=== PATIENT | female | born 1930 | race African-American/Black ===

== ENCOUNTER 2020-02-05 13:40 | Inpatient (IN) | payer BC, MEDICARE ==
[~2020-02-05] VITALS: Ht 154.9 cm; Wt 76.2 kg
[2020-02-05 16:53] LABS: MEAN CORPUSCULAR HEMOGLOBIN 31.3 pg (28.0-32.0); MEAN CORPUSCULAR VOLUME 102.3 fL (81.0-99.0); MEAN PLATELET VOLUME 10.7 fl (7.4-10.4); PLATELET 105 x1000/uL (130-400); RED BLOOD CELL COUNT 1.66 mill/uL (4.2-5.4); RED CELL DISTRIBUTION WIDTH 20.8 % (11.6-14.6)
[2020-02-05 16:58] LABS: CHLORIDE 115 mEq/L (98-107)
[2020-02-05 17:05] LABS: HEMATOCRIT. 16.9 % (36.0-48.0); HEMOGLOBIN. 5.2 g/dL (12.0-16.0)
[2020-02-05 18:32] LABS: CLARITY URINE CLOUDY (CLEAR); COLOR URINE YELLOW (YELLOW); KETONES URINE NEGATIVE (NEGATIVE); LEUKOCYTE ESTERASE URINE 3+ (NEGATIVE); NITRITE URINE NEGATIVE (NEGATIVE); OCCULT BLOOD URINE TRACE (NEGATIVE); PH URINE 5.5 (4.5-8.0); PROTEIN URINE NEGATIVE (NEGATIVE); SPECIFIC GRAVITY URINE 1.014 (1.005-1.030); UROBILINOGEN URINE 0.2 E.U./dL (0.2-1.0)
[2020-02-05 18:46] LABS: BG BASE EXCESS -13.3 mmol/L (-2.0-2.0); BG CARBOXYHEMOGLOBIN 1.4 % (0.5-1.5); BG DEOXYHEMOGLOBIN 45.1 % (0.0-5.0); BG FRACTION INSPIRED OXYGEN 36; BG HCO3 ACT 12.3 mmol/L (22.0-26.0); BG METHEMOGLOBIN 0.5 % (0.0-1.5); BG PCO2 26.9 mmHg (35.0-45.0); BG PH 7.278 (7.350-7.450); BG PO2 36.4 mmHg (75.0-100.0); BG SAMPLE SITE OTHER; BG TOTAL HEMOGLOBIN 5.4 g/dL (12.0-18.0); BG VENT MODE NASAL CANNULA
[2020-02-05] MEDS ORDERED: INSULIN REGULAR (HUMULIN R) 300UNITS/3ML IV ONE (19:00)
[2020-02-05] MEDS ORDERED: SODIUM BICARBONATE 8.4% 1 MEQ/ML 50ML SYR IV ONE (19:00)
[2020-02-05] MEDS ORDERED: CALCIUM CHLORIDE 1GM/10ML SYR IV ONE (19:00)
[2020-02-05] MEDS ORDERED: DEXTROSE 50% WATER 50ML SYRINGE IV ONE (19:00)
[2020-02-05] MEDS ORDERED: CEFTRIAXONE 1 G PREMIX 50 ML IV ONE (19:30)
[2020-02-05 20:43] LABS: TOTAL IRON BINDING CAPACITY 321 ug/dL (250-450)
[2020-02-05] MEDS ORDERED: TRAMADOL 50MG TABLET ONE (20:43)
[2020-02-05] MEDS ORDERED: TRAMADOL 50MG TABLET PO ONE (20:45)
[2020-02-05 21:26] LABS: NUCLEATED RED BLOOD CELLS 1 /100 WBC
[2020-02-05 21:29] LABS: PLATELET ESTIMATE DECREASED
[2020-02-06] VITALS (12 sets, daily range): BP systolic 122–135; BP diastolic 44–75
[2020-02-06] MEDS ORDERED: ALLO100T MT (02:34)
[2020-02-06] MEDS ORDERED: GLIM2TAB30 MT (02:34)
[2020-02-06] MEDS ORDERED: OMEP40CA12 MT (02:34)
[2020-02-06] MEDS ORDERED: ATOR20TA65 MT (02:34)
[2020-02-06] MEDS ORDERED: WARF2.5T83 MT (02:34)
[2020-02-06] MEDS ORDERED: FERR-71 MT (02:34)
[2020-02-06] MEDS ORDERED: CARV25TA47 MT (02:34)
[2020-02-06] MEDS ORDERED: FURO40TA5 MT (02:34)
[2020-02-06] MEDS ORDERED: METO2.5T14 MT (02:34)
[2020-02-06] MEDS ORDERED: LOSA50TA41 MT (02:34)
[2020-02-06] MEDS ORDERED: CLONIDINE 0.1MG TABLET PO PRN (03:45)
[2020-02-06] MEDS ORDERED: ACETAMINOPHEN 325MG TABLET PO PRN (03:45)
[2020-02-06] MEDS ORDERED: ONDANSETRON HCL 4MG/2ML INJ IV PRN (03:45)
[2020-02-06 04:26] LABS: MEAN CORPUSCULAR HEMOGLOBIN 30.6 pg (28.0-32.0); MEAN CORPUSCULAR VOLUME 95.4 fL (81.0-99.0); MEAN PLATELET VOLUME 9.7 fl (7.4-10.4); PLATELET 88 x1000/uL (130-400); RED BLOOD CELL COUNT 2.01 mill/uL (4.2-5.4); RED CELL DISTRIBUTION WIDTH 19.1 % (11.6-14.6)
[2020-02-06 04:27] LABS: PHOSPHORUS 3.4 mg/dL (2.5-4.9)
[2020-02-06 04:41] LABS: HEMOGLOBIN. 6.1 g/dL (12.0-16.0)
[2020-02-06 04:42] LABS: HEMATOCRIT. 19.1 % (36.0-48.0)
[2020-02-06 05:22] LABS: NUCLEATED RED BLOOD CELLS 1 /100 WBC; PLATELET ESTIMATE DECREASED
[2020-02-06] MEDS ORDERED: DEXTROSE 50% WATER 50ML SYRINGE IV PRN (13:00)
[2020-02-06 13:17] LABS: TOTAL IRON BINDING CAPACITY 299 ug/dL (250-450)
[2020-02-06] MEDS: FERROUS SULFATE 325MG TABLET PO SCH (15:02)
[2020-02-06] MEDS: ALLOPURINOL 100 MG TABLET PO SCH (15:02)
[2020-02-06] MEDS: LOSARTAN POTASSIUM 50 MG TABLET PO SCH (15:02)
[2020-02-06] MEDS: CARVEDILOL 12.5MG TABLET PO SCH ×2 (15:03→21:00)
[2020-02-06] MEDS: FUROSEMIDE 40MG/4ML VIAL IVP SCH (15:19)
[2020-02-06] MEDS ORDERED: DOCUSATE SODIUM 250MG CAPSULE PO PRN (15:45)
[2020-02-06] MEDS: BLOOD SUGAR DIAGNOSTIC STRIP TEST SCH ×2 (17:16→21:00)
[2020-02-06] MEDS: INSULIN LISPRO 100 UNITS/ML SUBCUT SCH ×2 (17:19→22:33)
[2020-02-06] MEDS ORDERED: ATORVASTATIN CALCIUM 20MG TABLET PO SCH (21:00)
[2020-02-07] VITALS (14 sets, daily range): BP systolic 110–145; BP diastolic 15–60
[2020-02-07 06:30] LABS: FERRITIN 39 ng/mL (10-291)
[2020-02-07 06:41] LABS: HEPATITIS B SURFACE ANTIGEN NEGATIVE
[2020-02-07 06:44] LABS: HEMATOCRIT. 21.1 % (36.0-48.0); MEAN CORPUSCULAR HEMOGLOBIN 31.2 pg (28.0-32.0); MEAN CORPUSCULAR VOLUME 94.1 fL (81.0-99.0); PLATELET 77 x1000/uL (130-400); RED BLOOD CELL COUNT 2.24 mill/uL (4.2-5.4); RED CELL DISTRIBUTION WIDTH 17.9 % (11.6-14.6)
[2020-02-07] MEDS: INSULIN LISPRO 100 UNITS/ML SUBCUT SCH ×3 (07:44→16:56)
[2020-02-07] MEDS: BLOOD SUGAR DIAGNOSTIC STRIP TEST SCH ×3 (07:44→16:55)
[2020-02-07] MEDS: FUROSEMIDE 40MG/4ML VIAL IVP SCH (09:24)
[2020-02-07] MEDS: FERROUS SULFATE 325MG TABLET PO SCH (09:25)
[2020-02-07] MEDS: CARVEDILOL 12.5MG TABLET PO SCH (09:25)
[2020-02-07] MEDS: ALLOPURINOL 100 MG TABLET PO SCH (09:25)
[2020-02-07] MEDS: LOSARTAN POTASSIUM 50 MG TABLET PO SCH (09:25)
[2020-02-07 11:56] LABS: PROTHROMBIN TIME 59.6 sec (9.6-11.0)
[2020-02-07 11:59] LABS: NUCLEATED RED BLOOD CELLS 2 /100 WBC
[2020-02-07 12:01] LABS: PLATELET ESTIMATE DECREASED
[2020-02-07 12:11] LABS: INR 5.8
== END 2020-02-07 21:25 | disposition short-term general hospital (02) | DRG 291 ==
LOC: ER 13:40 → 6WST 19:52 → EDBEDREQ 19:56 → EDBEDREQTM 19:56 → ENRESERV 22:53
PROVIDERS: ADMIT Internal Medicine; ATTEND Internal Medicine
PROC: 30233N1 Transfusion of Nonautologous Red Blood Cells into Peripheral Vein, Percutaneous Approach (ICD-10-PCS; principal; 2020-02-05)
DX: I13.0 Hypertensive heart and chronic kidney disease with heart failure and stage 1 through stage 4 chronic kidney disease, or unspecified chronic kidney disease (principal); I50.23 Acute on chronic systolic (congestive) heart failure; N17.9 Acute kidney failure, unspecified; N39.0 Urinary tract infection, site not specified; J91.8 Pleural effusion in other conditions classified elsewhere; I42.9 Cardiomyopathy, unspecified; N18.9 Chronic kidney disease, unspecified; M19.90 Unspecified osteoarthritis, unspecified site; D69.6 Thrombocytopenia, unspecified; E87.5 Hyperkalemia; J44.9 Chronic obstructive pulmonary disease, unspecified; Z86.73 Personal history of transient ischemic attack (TIA), and cerebral infarction without residual deficits; Z95.2 Presence of prosthetic heart valve; Z95.810 Presence of automatic (implantable) cardiac defibrillator; D63.1 Anemia in chronic kidney disease
CPT/HCPCS: 36415; 36600; 71045; 76770; 80048; 80053; 80076; 81003; 82375; 82728; 82805; 82962; 83036; 83540; 83550; 83605; 83735; 83880; 84100; 84145; 84484; 85025; 85044; 86850; 86900; 86920; 87340; 87804; 93005; 93306; 93970; 96365; 96375; 99291; J0696; J1815; J1940; J3490; P9016

== ENCOUNTER 2021-08-11 22:06 | Inpatient (IN) | payer MEDICARE ==
[~2021-08-11] VITALS: Ht 157.5 cm; Wt 72.6 kg
[~2021-08-11 22:06] MED LIST: ALLO100T MT; ATOR20TA65 MT; CARV25TA47 MT; FERR-71 MT; FURO40TA5 MT; GLIM2TAB30 MT; LOSA50TA41 MT; METO2.5T2 MT; OMEP40CA20 MT; WARF2.5T83 MT
[2021-08-11] MEDS ORDERED: MORPHINE SULFATE 4 MG/ML CPJ (NOT FOR IM USE) IV ONE (22:45)
[2021-08-12 00:57] LABS: BASOPHILS % 0.8 % (0.0-2.0); EOSINOPHILS % 3.3 % (0.0-5.0); HEMATOCRIT. 35.2 % (36.0-48.0); HEMOGLOBIN. 10.7 g/dL (12.0-16.0); MEAN PLATELET VOLUME 10.6 fl (7.4-10.4); MONOCYTES % 11.2 % (2.0-8.0); NEUTROPHILS % 67.7 % (40.0-76.0); PLATELET 82 x1000/uL (130-400); RED BLOOD CELL COUNT 3.45 mill/uL (4.2-5.4); RED CELL DISTRIBUTION WIDTH 18.5 % (11.6-14.6)
[2021-08-12 01:01] LABS: CHLORIDE 111 mEq/L (98-107)
[2021-08-12 01:06] LABS: INR 1.3; PARTIAL THROMBOPLASTIN TIME 33.4 sec (23.4-31.0); PROTHROMBIN TIME 13.6 sec (9.6-11.0)
[2021-08-12 02:07] LABS: CLARITY URINE CLOUDY (CLEAR); COLOR URINE DK YELLOW (YELLOW); KETONES URINE TRACE (NEGATIVE); LEUKOCYTE ESTERASE URINE 2+ (NEGATIVE); NITRITE URINE NEGATIVE (NEGATIVE); OCCULT BLOOD URINE 1+ (NEGATIVE); PROTEIN URINE NEGATIVE (NEGATIVE)
[2021-08-12] MEDS ORDERED: MORPHINE SULFATE 4 MG/ML CPJ (NOT FOR IM USE) IV NR (02:15)
[2021-08-12] MEDS ORDERED: DEXTROSE 50% WATER 50ML SYRINGE IV PRN (05:45)
[2021-08-12 06:15] VITALS: BP 124/54
[2021-08-12] MEDS ORDERED: NALOXONE HCL 0.4MG/ML VIAL IV PRN (06:30)
[2021-08-12] MEDS ORDERED: BLOOD SUGAR DIAGNOSTIC STRIP TEST SCH (07:20)
[2021-08-12] MEDS ORDERED: INSULIN LISPRO 100 UNITS/ML SUBCUT SCH (07:50)
[2021-08-12 08:00] VITALS: BP 118/40
[2021-08-12] MEDS ORDERED: AMLODIPINE 10MG TABLET PO SCH (09:00)
[2021-08-12] MEDS: HYDROCODONE/ACETAMINOPHEN 5/325MG TABLET PO PRN ×3 (10:27→21:12)
[2021-08-12] MEDS: FOLIC ACID/VITAMIN B COMP W-C TABLET PO SCH (10:27)
[2021-08-12 12:00] VITALS: BP 116/60
[2021-08-12 16:00] VITALS: BP 119/50
[2021-08-12] MEDS: CEFTRIAXONE 1,000 MG in DEXTROSE 5% WATER 50 ML IV SCH (17:42)
[2021-08-12 18:01] LABS: HEPATITIS B SURFACE ANTIGEN NEGATIVE
[2021-08-12 19:12] VITALS: BP 160/60
[2021-08-12 20:00] VITALS: BP 125/63
[2021-08-12] MEDS: AMLODIPINE 5MG TABLET PO SCH (21:09)
[2021-08-13] VITALS: BP 125/56
[2021-08-13 04:00] VITALS: BP 124/70
[2021-08-13] MEDS: HYDROCODONE/ACETAMINOPHEN 5/325MG TABLET PO PRN ×2 (05:48→21:24)
[2021-08-13 08:00] VITALS: BP 131/48
[2021-08-13 08:01] LABS: BASOPHILS % 0.4 % (0.0-2.0); EOSINOPHILS % 2.4 % (0.0-5.0); HEMATOCRIT. 41.4 % (36.0-48.0); HEMOGLOBIN. 12.2 g/dL (12.0-16.0); LYMPHOCYTES % 14.8 % (20.0-50.0); MEAN CORPUSCULAR HEMOGLOBIN 30.5 pg (28.0-32.0); MEAN CORPUSCULAR VOLUME 103.2 fL (81.0-99.0); MEAN PLATELET VOLUME 10.8 fl (7.4-10.4); MONOCYTES % 14.1 % (2.0-8.0); NEUTROPHILS % 68.3 % (40.0-76.0); PLATELET 73 x1000/uL (130-400); RED BLOOD CELL COUNT 4.01 mill/uL (4.2-5.4); RED CELL DISTRIBUTION WIDTH 19.1 % (11.6-14.6)
[2021-08-13] MEDS: AMLODIPINE 5MG TABLET PO SCH ×2 (09:36→20:23)
[2021-08-13] MEDS: FOLIC ACID/VITAMIN B COMP W-C TABLET PO SCH (09:36)
[2021-08-13 12:00] VITALS: BP 127/48
[2021-08-13] MEDS: CEFTRIAXONE 1,000 MG in DEXTROSE 5% WATER 50 ML IV SCH (13:20)
[2021-08-13 20:00] VITALS: BP 103/70
[2021-08-13 23:42] VITALS: BP 114/72
[2021-08-14 04:00] VITALS: BP 124/48
[2021-08-14 07:11] LABS: HEMATOCRIT. 40.6 % (36.0-48.0); HEMOGLOBIN. 12.2 g/dL (12.0-16.0); MEAN CORPUSCULAR VOLUME 100.1 fL (81.0-99.0); MEAN PLATELET VOLUME 10.4 fl (7.4-10.4); PLATELET 63 x1000/uL (130-400); RED BLOOD CELL COUNT 4.06 mill/uL (4.2-5.4); RED CELL DISTRIBUTION WIDTH 18.3 % (11.6-14.6)
[2021-08-14 08:00] VITALS: BP 123/21
[2021-08-14] MEDS: FOLIC ACID/VITAMIN B COMP W-C TABLET PO SCH (08:25)
[2021-08-14] MEDS: AMLODIPINE 5MG TABLET PO SCH ×2 (08:26→21:00)
[2021-08-14 12:00] VITALS: BP 136/50
[2021-08-14] MEDS ORDERED: DEXTROSE 50% WATER 50ML SYRINGE IV PRN (12:45)
[2021-08-14] MEDS ORDERED: MORPHINE SULFATE 2 MG/ML CPJ (NOT FOR IM USE) IV PRN (12:45)
[2021-08-14] MEDS: INSULIN LISPRO 100 UNITS/ML SUBCUT SCH ×3 (12:48→21:00)
[2021-08-14] MEDS: BLOOD SUGAR DIAGNOSTIC STRIP TEST SCH ×4 (13:20→22:04)
[2021-08-14] MEDS: CEFTRIAXONE 1,000 MG in DEXTROSE 5% WATER 50 ML IV SCH (13:36)
[2021-08-14 16:00] VITALS: BP 163/50
[2021-08-14] MEDS ORDERED: VANCOMYCIN HCL 1 GM/VIAL ONE (16:22)
[2021-08-14] MEDS ORDERED: BACITRACIN 15GM TUBE TOP ONE (16:22)
[2021-08-14] MEDS ORDERED: BUPIVACAINE HCL/PF 0.25% (2.5MG/ML) 10ML ONE (16:22)
[2021-08-14] MEDS ORDERED: GENTAMICIN SULF 40MG/ML 2ML VIAL ONE ×2 (16:22→17:16)
[2021-08-14] MEDS ORDERED: POLYMYXIN B SULFATE 500000 UNITS/VIAL ONE (17:15)
[2021-08-14] MEDS ORDERED: LIDOCAINE HCL/EPINEPHRINE 1%-EPI 1:100,000 20 ML VIAL ONE (17:15)
[2021-08-14] MEDS ORDERED: HYDROCODONE/ACETAMINOPHEN 5/325MG TABLET PO PRN ×2 (17:30)
[2021-08-14] MEDS ORDERED: ONDANSETRON HCL 4MG/2ML INJ IV PRN ×2 (17:30→19:30)
[2021-08-14] MEDS ORDERED: CEFAZOLIN 1000MG PREMIX 50 ML IV SCH (17:30)
[2021-08-14] MEDS ORDERED: HYDROMORPHONE HCL/PF 2MG/ML CPJ IV PRN (17:54)
[2021-08-14] MEDS ORDERED: CEFAZOLIN SODIUM 1000MG/VIAL ONE (17:55)
[2021-08-14] MEDS ORDERED: DEXAMETHASONE 4MG/ML 1ML VIAL ONE (17:55)
[2021-08-14] MEDS ORDERED: ALBUMIN HUMAN 25GM/100ML (25%) IV NR (18:00)
[2021-08-14] MEDS ORDERED: ALBUMIN HUMAN 12.5GM/50ML (25%) IV ONE (18:02)
[2021-08-14] MEDS ORDERED: ALBUMIN HUMAN 25GM/100ML (25%) IV ONE (18:04)
[2021-08-14 18:08] LABS: PLATELET ESTIMATE DECREASED
[2021-08-14] MEDS ORDERED: LABETALOL 5MG/ML SYR 20 MG/4 ML SYRINGE IV PRN (19:30)
[2021-08-14] MEDS ORDERED: MEPERIDINE HCL/PF 25MG/ML CPJ IV PRN (19:30)
[2021-08-14] MEDS ORDERED: HEPARIN SODIUM 1,000 UNIT/1ML VIAL IV NR (19:45)
[2021-08-15 00:02] VITALS: BP 122/57
[2021-08-15 04:00] VITALS: BP 119/60
[2021-08-15] MEDS: INSULIN LISPRO 100 UNITS/ML SUBCUT SCH ×4 (07:50→20:42)
[2021-08-15 08:00] VITALS: BP 114/33
[2021-08-15] MEDS: AMLODIPINE 5MG TABLET PO SCH ×2 (08:24→20:37)
[2021-08-15] MEDS: CEFAZOLIN 1000MG PREMIX 50 ML IV SCH (08:43)
[2021-08-15] MEDS: FOLIC ACID/VITAMIN B COMP W-C TABLET PO SCH (08:43)
[2021-08-15] MEDS ORDERED: ENOXAPARIN 40MG/0.4ML SYR SUBCUT SCH (09:00)
[2021-08-15 12:00] VITALS: BP 109/50
[2021-08-15] MEDS: BLOOD SUGAR DIAGNOSTIC STRIP TEST SCH ×3 (12:20→20:37)
[2021-08-15] MEDS: CEFTRIAXONE 1,000 MG in DEXTROSE 5% WATER 50 ML IV SCH (13:00)
[2021-08-15 16:00] VITALS: BP 92/47
[2021-08-15 17:39] LABS: HEMATOCRIT. 29.5 % (36.0-48.0); MEAN CORPUSCULAR HEMOGLOBIN 30.9 pg (28.0-32.0); MEAN CORPUSCULAR VOLUME 100.9 fL (81.0-99.0); MEAN PLATELET VOLUME 11.1 fl (7.4-10.4); PLATELET 61 x1000/uL (130-400); RED BLOOD CELL COUNT 2.92 mill/uL (4.2-5.4); RED CELL DISTRIBUTION WIDTH 18.3 % (11.6-14.6)
[2021-08-15 18:17] LABS: PLATELET ESTIMATE DECREASED
[2021-08-15 20:00] VITALS: BP 117/61
[2021-08-16] VITALS: BP 111/67
[2021-08-16 04:00] VITALS: BP 153/82
[2021-08-16] MEDS ORDERED: DEXTROSE 50% WATER 50ML SYRINGE IV SCH (05:30)
[2021-08-16] MEDS ORDERED: INSULIN REGULAR (HUMULIN R) 300UNITS/3ML VIAL IV SCH (06:00)
[2021-08-16] MEDS: CEFAZOLIN 1000MG PREMIX 50 ML IV SCH (06:52)
[2021-08-16] MEDS ORDERED: SODIUM BICARBONATE 8.4% 1 MEQ/ML 50ML SYR IV SCH (07:00)
[2021-08-16] MEDS ORDERED: CALCIUM CHLORIDE 1,000 MG in DEXT 5% WATER 90 ML IV SCH (07:00)
[2021-08-16] MEDS: BLOOD SUGAR DIAGNOSTIC STRIP TEST SCH ×4 (07:20→21:00)
[2021-08-16 08:00] VITALS: BP 99/46
[2021-08-16 08:59] LABS: HEMATOCRIT. 23.1 % (36.0-48.0); HEMOGLOBIN. 7.4 g/dL (12.0-16.0); MEAN CORPUSCULAR HEMOGLOBIN 31.5 pg (28.0-32.0); MEAN CORPUSCULAR VOLUME 97.6 fL (81.0-99.0); MEAN PLATELET VOLUME 10.2 fl (7.4-10.4); PLATELET 58 x1000/uL (130-400); RED BLOOD CELL COUNT 2.36 mill/uL (4.2-5.4); RED CELL DISTRIBUTION WIDTH 18.1 % (11.6-14.6)
[2021-08-16] MEDS: AMLODIPINE 5MG TABLET PO SCH ×2 (09:00→22:25)
[2021-08-16] MEDS: FOLIC ACID/VITAMIN B COMP W-C TABLET PO SCH (09:28)
[2021-08-16] MEDS ORDERED: HEPARIN SODIUM 1,000 UNIT/1ML VIAL IV NR (09:30)
[2021-08-16] MEDS: INSULIN LISPRO 100 UNITS/ML SUBCUT SCH ×4 (09:33→22:25)
[2021-08-16 10:16] LABS: PLATELET ESTIMATE MARKEDLY DECREASED
[2021-08-16] MEDS: CEFTRIAXONE 1,000 MG in DEXTROSE 5% WATER 50 ML IV SCH (13:54)
[2021-08-16 16:00] VITALS: BP 122/69
[2021-08-16 20:00] VITALS: BP 142/59
[2021-08-17] VITALS (7 sets, daily range): BP systolic 117–142; BP diastolic 46–67
[2021-08-17] MEDS: INSULIN LISPRO 100 UNITS/ML SUBCUT SCH ×4 (06:42→21:39)
[2021-08-17] MEDS: BLOOD SUGAR DIAGNOSTIC STRIP TEST SCH ×4 (06:42→21:07)
[2021-08-17] MEDS: FOLIC ACID/VITAMIN B COMP W-C TABLET PO SCH (09:15)
[2021-08-17] MEDS: AMLODIPINE 5MG TABLET PO SCH ×2 (09:15→20:32)
[2021-08-17] MEDS: LACTULOSE 20G/30ML UDC PO SCH ×2 (17:24→21:00)
[2021-08-17 21:25] LABS: HEMATOCRIT. 26.1 % (36.0-48.0); MEAN CORPUSCULAR HEMOGLOBIN 30.8 pg (28.0-32.0); MEAN CORPUSCULAR VOLUME 100.3 fL (81.0-99.0); MEAN PLATELET VOLUME 10.4 fl (7.4-10.4); PLATELET 64 x1000/uL (130-400); RED CELL DISTRIBUTION WIDTH 18.3 % (11.6-14.6)
[2021-08-17 22:46] LABS: PLATELET ESTIMATE DECREASED
[2021-08-18] VITALS: BP 102/64
[2021-08-18 04:00] VITALS: BP 145/62
[2021-08-18] MEDS: INSULIN LISPRO 100 UNITS/ML SUBCUT SCH ×4 (07:50→21:00)
[2021-08-18 08:00] VITALS: BP 135/55
[2021-08-18] MEDS: BLOOD SUGAR DIAGNOSTIC STRIP TEST SCH ×4 (08:00→21:00)
[2021-08-18] MEDS ORDERED: LIDOCAINE HCL 1% 30ML VIAL (10MG/ML) ONE (08:05)
[2021-08-18] MEDS: LACTULOSE 20G/30ML UDC PO SCH (09:00)
[2021-08-18] MEDS: CEFAZOLIN 1000MG PREMIX 50 ML IV SCH (10:10)
[2021-08-18] MEDS: FOLIC ACID/VITAMIN B COMP W-C TABLET PO SCH (10:11)
[2021-08-18] MEDS: AMLODIPINE 5MG TABLET PO SCH ×2 (10:11→21:00)
[2021-08-18 12:00] VITALS: BP 130/41
[2021-08-18 16:00] VITALS: BP 143/31
[2021-08-18 20:00] VITALS: BP 150/51
[2021-08-19] VITALS: BP 152/52
[2021-08-19 04:00] VITALS: BP 100/82
[2021-08-19] MEDS: CEFAZOLIN 1000MG PREMIX 50 ML IV SCH (06:36)
[2021-08-19] MEDS: BLOOD SUGAR DIAGNOSTIC STRIP TEST SCH ×4 (06:36→21:27)
[2021-08-19] MEDS: INSULIN LISPRO 100 UNITS/ML SUBCUT SCH ×4 (07:50→21:26)
[2021-08-19 08:00] VITALS: BP 135/66
[2021-08-19] MEDS: AMLODIPINE 5MG TABLET PO SCH ×2 (09:00→21:17)
[2021-08-19] MEDS: FOLIC ACID/VITAMIN B COMP W-C TABLET PO SCH (09:12)
[2021-08-19 12:00] VITALS: BP 118/46
[2021-08-19 17:32] LABS: BASOPHILS % 0.2 % (0.0-2.0); HEMATOCRIT. 25.2 % (36.0-48.0); HEMOGLOBIN. 7.5 g/dL (12.0-16.0); LYMPHOCYTES % 17.2 % (20.0-50.0); MEAN CORPUSCULAR HEMOGLOBIN 30.1 pg (28.0-32.0); MEAN CORPUSCULAR VOLUME 101.1 fL (81.0-99.0); MEAN PLATELET VOLUME 10.4 fl (7.4-10.4); MONOCYTES % 9.9 % (2.0-8.0); NEUTROPHILS % 69.7 % (40.0-76.0); PLATELET 63 x1000/uL (130-400); RED CELL DISTRIBUTION WIDTH 18.2 % (11.6-14.6)
[2021-08-19 20:00] VITALS: BP 148/53
[2021-08-19 20:18] VITALS: BP 148/53
== END 2021-08-19 19:20 | DRG 521 ==
LOC: ER 22:06 → 6EST 08-12 00:52 → ENRESERV 08-12 03:51
PROVIDERS: ADMIT Internal Medicine; ATTEND Internal Medicine
PROC: 5A1D70Z Performance of Urinary Filtration, Intermittent, Less than 6 Hours Per Day (ICD-10-PCS; 2021-08-13)
PROC: 0SRR0JZ Replacement of Right Hip Joint, Femoral Surface with Synthetic Substitute, Open Approach (ICD-10-PCS; principal; 2021-08-14)
PROC: 5A1D70Z Performance of Urinary Filtration, Intermittent, Less than 6 Hours Per Day (ICD-10-PCS; 2021-08-15)
PROC: 5A1D70Z Performance of Urinary Filtration, Intermittent, Less than 6 Hours Per Day (ICD-10-PCS; 2021-08-16)
PROC: 30233N1 Transfusion of Nonautologous Red Blood Cells into Peripheral Vein, Percutaneous Approach (ICD-10-PCS; 2021-08-17)
PROC: 02HV33Z Insertion of Infusion Device into Superior Vena Cava, Percutaneous Approach (ICD-10-PCS; 2021-08-18)
PROC: B548ZZA Ultrasonography of Superior Vena Cava, Guidance (ICD-10-PCS; 2021-08-18)
DX: S72.031A Displaced midcervical fracture of right femur, initial encounter for closed fracture (principal); N18.6 End stage renal disease; E43 Unspecified severe protein-calorie malnutrition; I12.0 Hypertensive chronic kidney disease with stage 5 chronic kidney disease or end stage renal disease; D61.818 Other pancytopenia; E11.22 Type 2 diabetes mellitus with diabetic chronic kidney disease; E87.8 Other disorders of electrolyte and fluid balance, not elsewhere classified; W01.0XXA Fall on same level from slipping, tripping and stumbling without subsequent striking against object, initial encounter; E78.5 Hyperlipidemia, unspecified; E87.5 Hyperkalemia; I27.20 Pulmonary hypertension, unspecified; I87.8 Other specified disorders of veins; Z20.822 Contact with and (suspected) exposure to COVID-19; R26.9 Unspecified abnormalities of gait and mobility; J44.9 Chronic obstructive pulmonary disease, unspecified; Z82.49 Family history of ischemic heart disease and other diseases of the circulatory system; Z99.2 Dependence on renal dialysis; Z86.73 Personal history of transient ischemic attack (TIA), and cerebral infarction without residual deficits; Z83.3 Family history of diabetes mellitus; Z95.2 Presence of prosthetic heart valve; Z95.810 Presence of automatic (implantable) cardiac defibrillator; Y93.89 Activity, other specified; Y92.89 Other specified places as the place of occurrence of the external cause; Y99.8 Other external cause status; Z68.29 Body mass index [BMI] 29.0-29.9, adult
CPT/HCPCS: 36415; 36573; 71045; 72170; 73502; 80048; 80053; 81003; 82962; 83036; 84132; 85025; 86705; 86709; 86803; 86850; 86900; 86920; 87340; 87426; 88305; 88311; 93005; 93306; 93970; 97110; 97162; 97166; 97530; 97535; 99285; C1725; C1769; C1776; J0690; J0696; J1100; J1580; J1644; J1815; J2175; J2270; J3370; J3490; J7040; J7060; P9016; P9047

== ENCOUNTER 2022-02-09 11:18 | Inpatient (IN) | payer MEDICARE ==
[~2022-02-09] VITALS: Ht 157.5 cm; Wt 85.7 kg
[~2022-02-09 11:18] MED LIST changes: -GLIM2TAB30 MT
[2022-02-09] MEDS ORDERED: FAMOTIDINE 20MG/2ML VIAL IV STA (12:06)
[2022-02-09 13:32] LABS: BASOPHILS % 0.5 % (0.0-2.0); EOSINOPHILS % 1.9 % (0.0-5.0); MEAN CORPUSCULAR HEMOGLOBIN 33.6 pg (28.0-32.0); MEAN CORPUSCULAR VOLUME 106.7 fL (81.0-99.0); MEAN PLATELET VOLUME 10.6 fl (7.4-10.4); MONOCYTES % 11.8 % (2.0-8.0); NEUTROPHILS % 69.8 % (40.0-76.0); PLATELET 84 x1000/uL (130-400); RED BLOOD CELL COUNT 1.41 mill/uL (4.2-5.4); RED CELL DISTRIBUTION WIDTH 18.9 % (11.6-14.6)
[2022-02-09 13:37] LABS: CHLORIDE 108 mEq/L (98-107)
[2022-02-09 13:50] LABS: HEMATOCRIT. 15.1 % (36.0-48.0); HEMOGLOBIN. 4.7 g/dL (12.0-16.0)
[2022-02-09] MEDS ORDERED: IOHEXOL-350 100 ML BOTTLE ONE (15:04)
[2022-02-09 21:44] LABS: BASOPHILS % 0.5 % (0.0-2.0); EOSINOPHILS % 3.1 % (0.0-5.0); LYMPHOCYTES % 25.3 % (20.0-50.0); MEAN CORPUSCULAR HEMOGLOBIN 33.4 pg (28.0-32.0); MEAN CORPUSCULAR VOLUME 103.2 fL (81.0-99.0); MEAN PLATELET VOLUME 10.3 fl (7.4-10.4); MONOCYTES % 14.2 % (2.0-8.0); NEUTROPHILS % 56.9 % (40.0-76.0); PLATELET 81 x1000/uL (130-400); RED BLOOD CELL COUNT 1.95 mill/uL (4.2-5.4); RED CELL DISTRIBUTION WIDTH 17.5 % (11.6-14.6)
[2022-02-09 21:49] LABS: HEMOGLOBIN. 6.5 g/dL (12.0-16.0)
[2022-02-09 21:50] LABS: HEMATOCRIT. 20.2 % (36.0-48.0)
[2022-02-10] MEDS ORDERED: IOHEXOL-350 100 ML BOTTLE ONE (02:22)
[2022-02-10 07:05] LABS: BASOPHILS % 0.3 % (0.0-2.0); EOSINOPHILS % 2.8 % (0.0-5.0); HEMATOCRIT. 28.8 % (36.0-48.0); HEMOGLOBIN. 9.5 g/dL (12.0-16.0); LYMPHOCYTES % 18.7 % (20.0-50.0); MEAN CORPUSCULAR VOLUME 96.9 fL (81.0-99.0); MEAN PLATELET VOLUME 10.1 fl (7.4-10.4); MONOCYTES % 14.7 % (2.0-8.0); NEUTROPHILS % 63.5 % (40.0-76.0); PLATELET 87 x1000/uL (130-400); RED BLOOD CELL COUNT 2.97 mill/uL (4.2-5.4); RED CELL DISTRIBUTION WIDTH 17.7 % (11.6-14.6)
[2022-02-10 11:00] VITALS: BP 136/40
[2022-02-10 11:01] VITALS: BP 136/40
[2022-02-10] MEDS ORDERED: ONDANSETRON HCL 4MG/2ML INJ IV PRN (11:15)
[2022-02-10 12:00] VITALS: BP 138/50
[2022-02-10 12:32] LABS: TOTAL IRON BINDING CAPACITY 268 ug/dL (250-450)
[2022-02-10] MEDS: PANTOPRAZOLE SODIUM 40 MG/VIAL IV SCH ×2 (12:42→21:34)
[2022-02-10] MEDS: SODIUM CHLORIDE 0.9% 1,000 ML IV SCH (12:42)
[2022-02-10 12:55] LABS: FERRITIN 318 ng/mL (10-291)
[2022-02-10 13:03] LABS: VITAMIN B12 SERUM 1027 pg/mL (211-911)
[2022-02-10 13:08] LABS: FOLIC ACID (FOLATE) SERUM > 20.00 ng/mL (>5.38)
[2022-02-10] MEDS ORDERED: DIATR MEGLU/DIATRIZOATE SOLN 120ML ONE (15:44)
[2022-02-10 16:00] VITALS: BP 158/50
[2022-02-10] MEDS: SUCRALFATE 1G TABLET PO SCH ×2 (16:28→21:00)
[2022-02-10 20:00] VITALS: BP 159/54
[2022-02-10 21:19] LABS: HEMATOCRIT 28.5 % (36.0-48.0)
[2022-02-10 22:29] LABS: HEPATITIS B SURFACE ANTIGEN NEGATIVE
[2022-02-11] VITALS: BP 133/31
[2022-02-11] MEDS ORDERED: MORPHINE SULFATE 2 MG/ML CPJ (NOT FOR IM USE) IV PRN (00:45)
[2022-02-11 04:00] VITALS: BP 148/68
[2022-02-11] MEDS: SUCRALFATE 1G TABLET PO SCH ×4 (05:44→21:11)
[2022-02-11] MEDS: SODIUM CHLORIDE 0.9% 1,000 ML IV SCH (07:15)
[2022-02-11 08:00] VITALS: BP 175/46
[2022-02-11] MEDS: PANTOPRAZOLE SODIUM 40 MG/VIAL IV SCH ×2 (08:42→21:11)
[2022-02-11 12:00] VITALS: BP 140/44
[2022-02-11] MEDS ORDERED: SUCR1TAB30 MT (13:33)
[2022-02-11 16:00] VITALS: BP 123/46
[2022-02-11 16:47] LABS: HEMATOCRIT. 29.5 % (36.0-48.0); HEMOGLOBIN. 9.5 g/dL (12.0-16.0); MEAN CORPUSCULAR VOLUME 89.8 fL (81.0-99.0); MEAN PLATELET VOLUME 10.1 fl (7.4-10.4); PLATELET 152 x1000/uL (130-400); RED BLOOD CELL COUNT 3.28 mill/uL (4.2-5.4); RED CELL DISTRIBUTION WIDTH 13.8 % (11.6-14.6)
[2022-02-11 16:52] LABS: INR 1.1; PARTIAL THROMBOPLASTIN TIME 29.2 sec (23.4-31.0); PROTHROMBIN TIME 11.9 sec (9.6-11.0)
[2022-02-11 17:22] LABS: CHLORIDE 101 mEq/L (98-107)
[2022-02-11 17:46] LABS: PLATELET ESTIMATE NORMAL
[2022-02-11 20:00] VITALS: BP 143/34
[2022-02-12] VITALS (9 sets, daily range): BP systolic 100–132; BP diastolic 41–93
[2022-02-12] MEDS: SODIUM CHLORIDE 0.9% 1,000 ML IV SCH (03:09)
[2022-02-12 05:03] LABS: HEMATOCRIT 28.3 % (36.0-48.0); HEMOGLOBIN 8.6 g/dL (12.0-16.0)
[2022-02-12] MEDS: SUCRALFATE 1G TABLET PO SCH ×4 (05:56→21:02)
[2022-02-12] MEDS: PANTOPRAZOLE SODIUM 40 MG/VIAL IV SCH ×2 (10:06→20:48)
[2022-02-12 11:43] LABS: BASOPHILS % 0.4 % (0.0-2.0); EOSINOPHILS % 3.7 % (0.0-5.0); HEMOGLOBIN. 7.8 g/dL (12.0-16.0); LYMPHOCYTES % 17.2 % (20.0-50.0); MEAN CORPUSCULAR HEMOGLOBIN 32.9 pg (28.0-32.0); MEAN CORPUSCULAR VOLUME 101.5 fL (81.0-99.0); MEAN PLATELET VOLUME 10.3 fl (7.4-10.4); MONOCYTES % 12.5 % (2.0-8.0); NEUTROPHILS % 66.2 % (40.0-76.0); PLATELET 73 x1000/uL (130-400); RED BLOOD CELL COUNT 2.36 mill/uL (4.2-5.4)
[2022-02-12] MEDS ORDERED: METOCLOPRAMIDE HCL 10MG/2ML VIAL IV NR ×2 (16:00→20:00)
[2022-02-12] MEDS ORDERED: NALOXONE HCL 0.4MG/ML VIAL IV PRN (16:00)
[2022-02-12] MEDS: SORBITOL 70% SOLN 30ML PO SCH ×2 (17:14→22:30)
[2022-02-12] MEDS: BISACODYL 5MG TABLET PO SCH ×2 (17:15→21:02)
[2022-02-13] VITALS: BP 140/58
[2022-02-13 00:41] LABS: HEMOGLOBIN 9.7 g/dL (12.0-16.0)
[2022-02-13] MEDS ORDERED: METOCLOPRAMIDE HCL 10MG/2ML VIAL IV NR ×2 (02:00→06:00)
[2022-02-13 03:28] LABS: BASOPHILS % 0.3 % (0.0-2.0); EOSINOPHILS % 3.7 % (0.0-5.0); HEMATOCRIT. 27.9 % (36.0-48.0); HEMOGLOBIN. 9.2 g/dL (12.0-16.0); LYMPHOCYTES % 14.3 % (20.0-50.0); MEAN CORPUSCULAR HEMOGLOBIN 31.6 pg (28.0-32.0); MEAN CORPUSCULAR VOLUME 96.3 fL (81.0-99.0); MEAN PLATELET VOLUME 9.6 fl (7.4-10.4); NEUTROPHILS % 67.7 % (40.0-76.0); PLATELET 67 x1000/uL (130-400); RED CELL DISTRIBUTION WIDTH 19.8 % (11.6-14.6)
[2022-02-13 03:33] LABS: INR 1.1; PROTHROMBIN TIME 11.8 sec (9.6-11.0)
[2022-02-13 04:00] VITALS: BP 125/45
[2022-02-13] MEDS: BISACODYL 5MG TABLET PO SCH (04:22)
[2022-02-13] MEDS: SORBITOL 70% SOLN 30ML PO SCH (04:22)
[2022-02-13] MEDS: SUCRALFATE 1G TABLET PO SCH ×4 (06:16→21:09)
[2022-02-13 08:00] VITALS: BP 138/84
[2022-02-13] MEDS: PANTOPRAZOLE SODIUM 40 MG/VIAL IV SCH ×2 (09:00→21:09)
[2022-02-13] MEDS ORDERED: LIDOCAINE HCL 1% 10 MG/ML 10ML VIAL ONE (09:13)
[2022-02-13] MEDS ORDERED: SORBITOL 70% SOLN 30ML NG NR (11:00)
[2022-02-13 12:28] VITALS: BP 138/57
[2022-02-13 15:41] VITALS: BP 129/57
[2022-02-13] MEDS: SORBITOL 70% SOLN 30ML NG SCH ×2 (17:17→21:10)
[2022-02-13] MEDS: SODIUM CHLORIDE 0.9% 1,000 ML IV SCH (17:19)
[2022-02-13] MEDS: METOCLOPRAMIDE HCL 10MG/2ML VIAL IV SCH (17:21)
[2022-02-13 20:00] VITALS: BP 183/84
[2022-02-13] MEDS ORDERED: MINERAL OIL ENEMA 133ML PR NR (21:00)
[2022-02-13] MEDS: HYDRALAZINE 20MG/ML VIAL IV PRN (21:10)
[2022-02-14] VITALS: BP 128/56
[2022-02-14] MEDS: METOCLOPRAMIDE HCL 10MG/2ML VIAL IV SCH ×4 (01:10→17:48)
[2022-02-14 04:00] VITALS: BP 115/58
[2022-02-14] MEDS: SORBITOL 70% SOLN 30ML NG SCH ×2 (04:30→10:30)
[2022-02-14] MEDS: SUCRALFATE 1G TABLET PO SCH ×4 (06:13→21:00)
[2022-02-14 07:40] VITALS: BP 162/73
[2022-02-14] MEDS: PANTOPRAZOLE SODIUM 40 MG/VIAL IV SCH ×2 (08:16→21:37)
[2022-02-14 10:37] LABS: HEMATOCRIT. 26.2 % (36.0-48.0); HEMOGLOBIN. 8.5 g/dL (12.0-16.0); MEAN CORPUSCULAR HEMOGLOBIN 32.1 pg (28.0-32.0); MEAN CORPUSCULAR VOLUME 99.1 fL (81.0-99.0); MEAN PLATELET VOLUME 9.6 fl (7.4-10.4); PLATELET 61 x1000/uL (130-400); RED BLOOD CELL COUNT 2.64 mill/uL (4.2-5.4); RED CELL DISTRIBUTION WIDTH 20.6 % (11.6-14.6)
[2022-02-14 10:52] LABS: PHOSPHORUS 3.4 mg/dL (2.5-4.9)
[2022-02-14] MEDS: METOPROLOL TARTRATE 5MG/5ML VIAL IV SCH ×2 (11:20→17:42)
[2022-02-14 11:39] LABS: INR 1.1; PROTHROMBIN TIME 12.2 sec (9.6-11.0)
[2022-02-14 12:00] VITALS: BP 152/94
[2022-02-14 12:29] LABS: NUCLEATED RED BLOOD CELLS 1 /100 WBC
[2022-02-14 12:30] LABS: PLATELET ESTIMATE DECREASED
[2022-02-14] MEDS: SODIUM CHLORIDE 0.9% 1,000 ML IV SCH (14:42)
[2022-02-14 16:00] VITALS: BP 134/71
[2022-02-14 20:00] VITALS: BP 145/42
[2022-02-14] MEDS: SENNOSIDES/DOCUSATE SOD 8.6/50MG TABLET PO SCH (21:00)
[2022-02-15] VITALS (7 sets, daily range): BP systolic 118–149; BP diastolic 40–69
[2022-02-15] MEDS: METOPROLOL TARTRATE 5MG/5ML VIAL IV SCH ×3 (02:00→18:05)
[2022-02-15] MEDS: SUCRALFATE 1G TABLET PO SCH ×4 (06:04→21:30)
[2022-02-15] MEDS: METOCLOPRAMIDE HCL 10MG/2ML VIAL IV SCH ×5 (06:42→23:30)
[2022-02-15] MEDS: SODIUM CHLORIDE 0.9% 1,000 ML IV SCH (09:56)
[2022-02-15] MEDS: PANTOPRAZOLE SODIUM 40 MG/VIAL IV SCH ×2 (09:57→21:30)
[2022-02-15] MEDS: POLYETHYLENE GLYCOL 3350 (17GM) 1 DOSE PACK PO SCH (09:59)
[2022-02-15 16:41] LABS: BASOPHILS % 0.2 % (0.0-2.0); EOSINOPHILS % 2.5 % (0.0-5.0); HEMATOCRIT. 27.9 % (36.0-48.0); HEMOGLOBIN. 9.1 g/dL (12.0-16.0); MEAN CORPUSCULAR HEMOGLOBIN 32.5 pg (28.0-32.0); MEAN CORPUSCULAR VOLUME 99.4 fL (81.0-99.0); MONOCYTES % 8.7 % (2.0-8.0); NEUTROPHILS % 77.6 % (40.0-76.0); PLATELET 52 x1000/uL (130-400); RED CELL DISTRIBUTION WIDTH 21.6 % (11.6-14.6)
[2022-02-15] MEDS: SENNOSIDES/DOCUSATE SOD 8.6/50MG TABLET PO SCH (21:30)
[2022-02-16] VITALS (7 sets, daily range): BP systolic 116–151; BP diastolic 45–67
[2022-02-16] MEDS: METOPROLOL TARTRATE 5MG/5ML VIAL IV SCH ×3 (01:22→16:06)
[2022-02-16] MEDS: SODIUM CHLORIDE 0.9% 1,000 ML IV SCH (04:43)
[2022-02-16] MEDS: METOCLOPRAMIDE HCL 10MG/2ML VIAL IV SCH ×3 (05:06→16:06)
[2022-02-16] MEDS: SUCRALFATE 1G TABLET PO SCH ×4 (06:20→21:10)
[2022-02-16 07:22] LABS: BASOPHILS % 0.3 % (0.0-2.0); EOSINOPHILS % 3.8 % (0.0-5.0); HEMATOCRIT. 28.1 % (36.0-48.0); HEMOGLOBIN. 8.8 g/dL (12.0-16.0); LYMPHOCYTES % 12.9 % (20.0-50.0); MEAN CORPUSCULAR HEMOGLOBIN 31.7 pg (28.0-32.0); MEAN CORPUSCULAR VOLUME 100.8 fL (81.0-99.0); MEAN PLATELET VOLUME 10.7 fl (7.4-10.4); MONOCYTES % 9.7 % (2.0-8.0); NEUTROPHILS % 73.3 % (40.0-76.0); RED BLOOD CELL COUNT 2.79 mill/uL (4.2-5.4); RED CELL DISTRIBUTION WIDTH 21.3 % (11.6-14.6)
[2022-02-16] MEDS: PANTOPRAZOLE SODIUM 40 MG/VIAL IV SCH ×2 (10:11→21:10)
[2022-02-16] MEDS: POLYETHYLENE GLYCOL 3350 (17GM) 1 DOSE PACK PO SCH (10:17)
[2022-02-16] MEDS: ALBUTEROL (0.083%) 2.5MG/3ML NEB HHN SCH ×3 (14:11→20:29)
[2022-02-16 15:19] LABS: PLATELET ESTIMATE MARKEDLY DECREASED
[2022-02-16 15:24] LABS: PLATELET 49 x1000/uL (130-400)
[2022-02-16] MEDS: SENNOSIDES/DOCUSATE SOD 8.6/50MG TABLET PO SCH (21:10)
[2022-02-17] VITALS (10 sets, daily range): BP systolic 100–162; BP diastolic 28–67
[2022-02-17] MEDS: METOCLOPRAMIDE HCL 10MG/2ML VIAL IV SCH ×4 (00:18→18:08)
[2022-02-17] MEDS: SODIUM CHLORIDE 0.9% 1,000 ML IV SCH (01:30)
[2022-02-17] MEDS: METOPROLOL TARTRATE 5MG/5ML VIAL IV SCH ×2 (01:45→09:29)
[2022-02-17] MEDS: ALBUTEROL (0.083%) 2.5MG/3ML NEB HHN SCH ×5 (01:56→21:24)
[2022-02-17] MEDS: SUCRALFATE 1G TABLET PO SCH ×4 (06:05→22:33)
[2022-02-17 07:14] LABS: BASOPHILS % 0.3 % (0.0-2.0); EOSINOPHILS % 1.7 % (0.0-5.0); HEMATOCRIT. 29.7 % (36.0-48.0); HEMOGLOBIN. 9.4 g/dL (12.0-16.0); LYMPHOCYTES % 7.8 % (20.0-50.0); MEAN CORPUSCULAR HEMOGLOBIN 31.9 pg (28.0-32.0); MEAN CORPUSCULAR VOLUME 100.9 fL (81.0-99.0); MEAN PLATELET VOLUME 10.7 fl (7.4-10.4); MONOCYTES % 9.3 % (2.0-8.0); NEUTROPHILS % 80.9 % (40.0-76.0); RED BLOOD CELL COUNT 2.95 mill/uL (4.2-5.4); RED CELL DISTRIBUTION WIDTH 21.1 % (11.6-14.6)
[2022-02-17] MEDS: POLYETHYLENE GLYCOL 3350 (17GM) 1 DOSE PACK PO SCH (09:00)
[2022-02-17] MEDS: PANTOPRAZOLE SODIUM 40 MG/VIAL IV SCH ×2 (09:28→22:33)
[2022-02-17 11:25] LABS: PLATELET 48 x1000/uL (130-400)
[2022-02-17] MEDS ORDERED: BACLOFEN 10MG TABLET PO NR (13:00)
[2022-02-17] MEDS ORDERED: LOSARTAN POTASSIUM 25 MG TABLET PO NR (14:12)
[2022-02-17 17:14] LABS: BG BASE EXCESS -6.9 mmol/L (-2.0-2.0); BG CARBOXYHEMOGLOBIN 0.2 % (0.5-1.5); BG DEOXYHEMOGLOBIN 13.5 % (0.0-5.0); BG FRACTION INSPIRED OXYGEN 21; BG HCO3 ACT 19.1 mmol/L (22.0-26.0); BG METHEMOGLOBIN 0.1 % (0.0-1.5); BG OXYGEN SATURATION 86.5 % (92.0-98.5); BG OXYHEMOGLOBIN 86.2 % (94.0-97.0); BG PCO2 40.2 mmHg (35.0-45.0); BG PH 7.295 (7.350-7.450); BG PO2 54.5 mmHg (75.0-100.0); BG SAMPLE SITE RIGHT RADIAL; BG TOTAL HEMOGLOBIN 9.7 g/dL (12.0-18.0); BG VENT MODE ROOM AIR
[2022-02-17] MEDS: SENNOSIDES/DOCUSATE SOD 8.6/50MG TABLET PO SCH (22:33)
[2022-02-17] MEDS: HYDRALAZINE 20MG/ML VIAL IV PRN (22:48)
[2022-02-18] VITALS (16 sets, daily range): BP systolic 85–129; BP diastolic 25–60
[2022-02-18] MEDS: ALBUTEROL (0.083%) 2.5MG/3ML NEB HHN SCH ×5 (00:45→21:13)
[2022-02-18] MEDS: SODIUM CHLORIDE 0.9% 1,000 ML IV SCH ×2 (05:52→17:00)
[2022-02-18] MEDS: SUCRALFATE 1G TABLET PO SCH ×5 (05:52→21:19)
[2022-02-18 07:51] LABS: HEMATOCRIT. 23.9 % (36.0-48.0); HEMOGLOBIN. 7.6 g/dL (12.0-16.0); MEAN CORPUSCULAR HEMOGLOBIN 32.3 pg (28.0-32.0); MEAN CORPUSCULAR VOLUME 101.4 fL (81.0-99.0); MEAN PLATELET VOLUME 10.2 fl (7.4-10.4); RED BLOOD CELL COUNT 2.35 mill/uL (4.2-5.4); RED CELL DISTRIBUTION WIDTH 21.8 % (11.6-14.6)
[2022-02-18 08:21] LABS: PLATELET 34 x1000/uL (130-400)
[2022-02-18] MEDS: PANTOPRAZOLE SODIUM 40 MG/VIAL IV SCH ×2 (08:50→21:19)
[2022-02-18] MEDS: POLYETHYLENE GLYCOL 3350 (17GM) 1 DOSE PACK PO SCH ×2 (08:50→08:56)
[2022-02-18] MEDS ORDERED: LOSARTAN POTASSIUM 25 MG TABLET PO SCH (09:00)
[2022-02-18] MEDS ORDERED: VANCOMYCIN 1.25GM PMX (XELLIA) 250 ML IV NR (09:00)
[2022-02-18] MEDS ORDERED: MEROPENEM 500 MG in SODIUM CHLORIDE 0.9% 50 ML IV SCH (09:30)
[2022-02-18 09:42] LABS: PLATELET ESTIMATE MARKEDLY DECREASED
[2022-02-18] MEDS ORDERED: PIPERACILLIN/TAZOBACTAM 3.375 G in DEXTROSE 5% WATER 50 ML IV SCH (10:30)
[2022-02-18] MEDS: MEROPENEM 500 MG in SODIUM CHLORIDE 0.9% 50 ML IV SCH (12:33)
[2022-02-18] MEDS ORDERED: PIPERACILLIN/TAZOBACTAM 3.375GM/50ML PREMIX IV SCH (14:00)
[2022-02-18 20:43] LABS: HEMATOCRIT 32.1 % (36.0-48.0); HEMOGLOBIN 9.9 g/dL (12.0-16.0)
[2022-02-18 20:55] LABS: INR 1.2
[2022-02-18] MEDS: SENNOSIDES/DOCUSATE SOD 8.6/50MG TABLET PO SCH (21:20)
[2022-02-18] MEDS ORDERED: MORPHINE SULFATE 2 MG/ML CPJ (NOT FOR IM USE) IV PRN (22:30)
[2022-02-18] MEDS: MORPHINE SULFATE 2 MG/ML CPJ (NOT FOR IM USE) IV PRN (23:38)
[2022-02-19] VITALS (22 sets, daily range): BP systolic 68–142; BP diastolic 31–106
[2022-02-19] MEDS: SODIUM CHLORIDE 0.9% 1,000 ML IV SCH (01:23)
[2022-02-19] MEDS: ALBUTEROL (0.083%) 2.5MG/3ML NEB HHN SCH ×6 (01:48→20:53)
[2022-02-19] MEDS: POLYETHYLENE GLYCOL 3350 (17GM) 1 DOSE PACK PO SCH (08:25)
[2022-02-19] MEDS: SUCRALFATE 1G TABLET PO SCH ×3 (08:25→17:30)
[2022-02-19] MEDS: PANTOPRAZOLE SODIUM 40 MG/VIAL IV SCH ×2 (08:25→22:40)
[2022-02-19 09:35] LABS: BASOPHILS % 0.2 % (0.0-2.0); EOSINOPHILS % 2.6 % (0.0-5.0); HEMATOCRIT. 27.3 % (36.0-48.0); HEMOGLOBIN. 8.6 g/dL (12.0-16.0); LYMPHOCYTES % 8.8 % (20.0-50.0); MEAN CORPUSCULAR HEMOGLOBIN 30.8 pg (28.0-32.0); MEAN CORPUSCULAR VOLUME 97.5 fL (81.0-99.0); MONOCYTES % 10.7 % (2.0-8.0); NEUTROPHILS % 77.7 % (40.0-76.0); RED CELL DISTRIBUTION WIDTH 22.7 % (11.6-14.6)
[2022-02-19 10:09] LABS: MEAN PLATELET VOLUME 10.6 fl (7.4-10.4); PLATELET 34 x1000/uL (130-400)
[2022-02-19 10:43] LABS: PLATELET ESTIMATE DECREASED
[2022-02-19] MEDS: MIDODRINE HCL 5MG TABLET PO SCH ×2 (12:00→17:31)
[2022-02-19] MEDS ORDERED: MIDODRINE HCL 5MG TABLET PO SCH (13:00)
[2022-02-19] MEDS: MEROPENEM 500 MG in SODIUM CHLORIDE 0.9% 50 ML IV SCH (13:36)
[2022-02-19] MEDS ORDERED: VANCOMYCIN 1GM PMX (XELLIA) 200 ML IV SCH (16:00)
[2022-02-19] MEDS: SENNOSIDES/DOCUSATE SOD 8.6/50MG TABLET PO SCH (22:40)
[2022-02-20] VITALS (12 sets, daily range): BP systolic 81–156; BP diastolic 47–94
[2022-02-20] MEDS: PANTOPRAZOLE SODIUM 40 MG/VIAL IV SCH ×2 (00:37→20:37)
[2022-02-20] MEDS: MORPHINE SULFATE 2 MG/ML CPJ (NOT FOR IM USE) IV PRN (00:38)
[2022-02-20] MEDS: SUCRALFATE 1G TABLET PO SCH ×5 (00:40→20:38)
[2022-02-20] MEDS: MIDODRINE HCL 5MG TABLET PO SCH ×3 (01:08→17:05)
[2022-02-20] MEDS: ALBUTEROL (0.083%) 2.5MG/3ML NEB HHN SCH ×7 (04:14→23:48)
[2022-02-20] MEDS: POLYETHYLENE GLYCOL 3350 (17GM) 1 DOSE PACK PO SCH (08:30)
[2022-02-20] MEDS: SODIUM CHLORIDE 0.9% 1,000 ML IV SCH (08:33)
[2022-02-20] MEDS: MEROPENEM 500 MG in SODIUM CHLORIDE 0.9% 50 ML IV SCH (11:38)
[2022-02-20 17:05] LABS: HEMATOCRIT. 29.6 % (36.0-48.0); HEMOGLOBIN. 9.1 g/dL (12.0-16.0); MEAN CORPUSCULAR HEMOGLOBIN 30.5 pg (28.0-32.0); MEAN PLATELET VOLUME 9.8 fl (7.4-10.4); RED BLOOD CELL COUNT 2.99 mill/uL (4.2-5.4); RED CELL DISTRIBUTION WIDTH 21.8 % (11.6-14.6)
[2022-02-20 17:17] LABS: PLATELET 36 x1000/uL (130-400)
[2022-02-20 17:37] LABS: PLATELET ESTIMATE MARKEDLY DECREASED
[2022-02-20] MEDS: SENNOSIDES/DOCUSATE SOD 8.6/50MG TABLET PO SCH (20:38)
[2022-02-21] VITALS (19 sets, daily range): BP systolic 109–162; BP diastolic 49–82
[2022-02-21] MEDS: MIDODRINE HCL 5MG TABLET PO SCH ×3 (01:17→17:51)
[2022-02-21] MEDS: ALBUTEROL (0.083%) 2.5MG/3ML NEB HHN SCH ×5 (03:54→21:09)
[2022-02-21] MEDS: SODIUM CHLORIDE 0.9% 1,000 ML IV SCH (05:12)
[2022-02-21 07:10] LABS: BASOPHILS % 0.2 % (0.0-2.0); EOSINOPHILS % 2.3 % (0.0-5.0); HEMATOCRIT. 27.5 % (36.0-48.0); HEMOGLOBIN. 8.8 g/dL (12.0-16.0); LYMPHOCYTES % 7.7 % (20.0-50.0); MEAN CORPUSCULAR HEMOGLOBIN 31.4 pg (28.0-32.0); MEAN CORPUSCULAR VOLUME 98.1 fL (81.0-99.0); MONOCYTES % 11.1 % (2.0-8.0); NEUTROPHILS % 78.7 % (40.0-76.0); RED CELL DISTRIBUTION WIDTH 20.7 % (11.6-14.6)
[2022-02-21] MEDS: SUCRALFATE 1G TABLET PO SCH ×4 (07:30→20:19)
[2022-02-21] MEDS: POLYETHYLENE GLYCOL 3350 (17GM) 1 DOSE PACK PO SCH (08:03)
[2022-02-21] MEDS: PANTOPRAZOLE SODIUM 40 MG/VIAL IV SCH ×2 (09:38→20:19)
[2022-02-21 11:39] LABS: PLATELET ESTIMATE MARKEDLY DECREASED
[2022-02-21 11:41] LABS: PLATELET 36 x1000/uL (130-400)
[2022-02-21 13:07] LABS: BG BASE EXCESS -4.6 mmol/L (-2.0-2.0); BG CARBOXYHEMOGLOBIN 0.5 % (0.5-1.5); BG DEOXYHEMOGLOBIN 15.1 % (0.0-5.0); BG FRACTION INSPIRED OXYGEN 21; BG HCO3 ACT 20.3 mmol/L (22.0-26.0); BG METHEMOGLOBIN 0.1 % (0.0-1.5); BG OXYGEN SATURATION 84.8 % (92.0-98.5); BG OXYHEMOGLOBIN 84.3 % (94.0-97.0); BG PCO2 36.4 mmHg (35.0-45.0); BG PH 7.364 (7.350-7.450); BG PO2 47.4 mmHg (75.0-100.0); BG SAMPLE SITE RIGHT RADIAL; BG TOTAL HEMOGLOBIN 10.1 g/dL (12.0-18.0); BG VENT MODE ROOM AIR
[2022-02-21] MEDS: MEROPENEM 500 MG in SODIUM CHLORIDE 0.9% 50 ML IV SCH (13:45)
[2022-02-21] MEDS ORDERED: MIDO5TAB4 MT (17:58)
[2022-02-21] MEDS: SENNOSIDES/DOCUSATE SOD 8.6/50MG TABLET PO SCH (20:19)
[2022-02-22] VITALS (16 sets, daily range): BP systolic 103–168; BP diastolic 20–100
[2022-02-22] MEDS: MIDODRINE HCL 5MG TABLET PO SCH ×3 (00:20→18:00)
[2022-02-22] MEDS: SODIUM CHLORIDE 0.9% 1,000 ML IV SCH ×2 (00:21→20:54)
[2022-02-22] MEDS: ALBUTEROL (0.083%) 2.5MG/3ML NEB HHN SCH ×6 (00:30→22:43)
[2022-02-22 06:37] LABS: HEMATOCRIT. 27.7 % (36.0-48.0); HEMOGLOBIN. 8.9 g/dL (12.0-16.0); MEAN CORPUSCULAR HEMOGLOBIN 31.1 pg (28.0-32.0); MEAN CORPUSCULAR VOLUME 96.5 fL (81.0-99.0); MEAN PLATELET VOLUME 9.9 fl (7.4-10.4); RED BLOOD CELL COUNT 2.87 mill/uL (4.2-5.4); RED CELL DISTRIBUTION WIDTH 20.6 % (11.6-14.6)
[2022-02-22 07:26] LABS: PLATELET 33 x1000/uL (130-400)
[2022-02-22] MEDS: POLYETHYLENE GLYCOL 3350 (17GM) 1 DOSE PACK PO SCH (09:00)
[2022-02-22] MEDS: PANTOPRAZOLE SODIUM 40 MG/VIAL IV SCH ×2 (09:28→20:53)
[2022-02-22] MEDS: SUCRALFATE 1G TABLET PO SCH ×4 (09:28→20:53)
[2022-02-22 10:01] LABS: PLATELET ESTIMATE MARKEDLY DECREASED
[2022-02-22] MEDS: MEROPENEM 500 MG in SODIUM CHLORIDE 0.9% 50 ML IV SCH (12:52)
[2022-02-22] MEDS: SENNOSIDES/DOCUSATE SOD 8.6/50MG TABLET PO SCH (20:53)
[2022-02-23] VITALS (15 sets, daily range): BP systolic 124–161; BP diastolic 48–100
[2022-02-23] MEDS: MIDODRINE HCL 5MG TABLET PO SCH ×3 (01:20→18:00)
[2022-02-23] MEDS: ALBUTEROL (0.083%) 2.5MG/3ML NEB HHN SCH ×6 (01:48→20:37)
[2022-02-23 06:05] LABS: BASOPHILS % 0.1 % (0.0-2.0); EOSINOPHILS % 2.6 % (0.0-5.0); HEMATOCRIT. 33.3 % (36.0-48.0); HEMOGLOBIN. 10.3 g/dL (12.0-16.0); LYMPHOCYTES % 7.1 % (20.0-50.0); MEAN CORPUSCULAR HEMOGLOBIN 30.8 pg (28.0-32.0); MEAN CORPUSCULAR VOLUME 99.3 fL (81.0-99.0); MEAN PLATELET VOLUME 9.6 fl (7.4-10.4); MONOCYTES % 13.2 % (2.0-8.0); RED BLOOD CELL COUNT 3.36 mill/uL (4.2-5.4); RED CELL DISTRIBUTION WIDTH 20.8 % (11.6-14.6)
[2022-02-23 06:18] LABS: PLATELET 34 x1000/uL (130-400)
[2022-02-23] MEDS: SUCRALFATE 1G TABLET PO SCH ×4 (08:31→20:58)
[2022-02-23] MEDS: PANTOPRAZOLE SODIUM 40 MG/VIAL IV SCH ×2 (08:31→20:58)
[2022-02-23] MEDS: POLYETHYLENE GLYCOL 3350 (17GM) 1 DOSE PACK PO SCH (08:32)
[2022-02-23] MEDS: MEROPENEM 500 MG in SODIUM CHLORIDE 0.9% 50 ML IV SCH (11:41)
[2022-02-23] MEDS ORDERED: VANCOMYCIN 500MG PREMIX 100 ML IV SCH (14:00)
[2022-02-23] MEDS ORDERED: IPRATROPIUM/ALBUTEROL 0.5-3(2.5)MG/3ML NEB HHN PRN (14:45)
[2022-02-23] MEDS: SODIUM CHLORIDE 0.9% 1,000 ML IV SCH (17:00)
[2022-02-23] MEDS: SENNOSIDES/DOCUSATE SOD 8.6/50MG TABLET PO SCH (20:58)
[2022-02-24] VITALS (12 sets, daily range): BP systolic 106–165; BP diastolic 46–106
[2022-02-24] MEDS: ALBUTEROL (0.083%) 2.5MG/3ML NEB HHN SCH ×5 (00:41→16:04)
[2022-02-24] MEDS: MIDODRINE HCL 5MG TABLET PO SCH ×3 (02:23→17:18)
[2022-02-24] MEDS: POLYETHYLENE GLYCOL 3350 (17GM) 1 DOSE PACK PO SCH (08:19)
[2022-02-24] MEDS: SUCRALFATE 1G TABLET PO SCH ×3 (08:19→17:18)
[2022-02-24] MEDS: PANTOPRAZOLE SODIUM 40 MG/VIAL IV SCH (08:19)
[2022-02-24 10:41] LABS: BASOPHILS % 0.3 % (0.0-2.0); HEMATOCRIT. 29.5 % (36.0-48.0); HEMOGLOBIN. 9.1 g/dL (12.0-16.0); LYMPHOCYTES % 8.5 % (20.0-50.0); MEAN CORPUSCULAR HEMOGLOBIN 31.2 pg (28.0-32.0); MEAN CORPUSCULAR VOLUME 100.7 fL (81.0-99.0); MEAN PLATELET VOLUME 10.5 fl (7.4-10.4); MONOCYTES % 14.6 % (2.0-8.0); NEUTROPHILS % 74.6 % (40.0-76.0); RED BLOOD CELL COUNT 2.93 mill/uL (4.2-5.4); RED CELL DISTRIBUTION WIDTH 20.9 % (11.6-14.6)
[2022-02-24 11:11] LABS: PLATELET 32 x1000/uL (130-400)
[2022-02-24] MEDS: SODIUM CHLORIDE 0.9% 1,000 ML IV SCH (12:35)
== END 2022-02-24 18:26 | disposition home or self-care (01) | DRG 377 ==
LOC: ER 11:18 → MICUSO 16:40 → EDBEDREQ 16:50 → 7EST 02-10 10:38 → 5EST 02-18 11:51
PROVIDERS: ADMIT Internal Medicine; ATTEND Internal Medicine
PROC: 30233N1 Transfusion of Nonautologous Red Blood Cells into Peripheral Vein, Percutaneous Approach (ICD-10-PCS; principal; 2022-02-09)
PROC: 5A1D70Z Performance of Urinary Filtration, Intermittent, Less than 6 Hours Per Day (ICD-10-PCS; 2022-02-11)
PROC: 5A1D70Z Performance of Urinary Filtration, Intermittent, Less than 6 Hours Per Day (ICD-10-PCS; 2022-02-12)
PROC: 05HY33Z Insertion of Infusion Device into Upper Vein, Percutaneous Approach (ICD-10-PCS; 2022-02-13)
PROC: B54NZZA Ultrasonography of Left Upper Extremity Veins, Guidance (ICD-10-PCS; 2022-02-13)
PROC: B51NZZA Fluoroscopy of Left Upper Extremity Veins, Guidance (ICD-10-PCS; 2022-02-13)
PROC: 5A1D70Z Performance of Urinary Filtration, Intermittent, Less than 6 Hours Per Day (ICD-10-PCS; 2022-02-14)
PROC: 5A1D70Z Performance of Urinary Filtration, Intermittent, Less than 6 Hours Per Day (ICD-10-PCS; 2022-02-17)
PROC: 30233R1 Transfusion of Nonautologous Platelets into Peripheral Vein, Percutaneous Approach (ICD-10-PCS; 2022-02-17)
PROC: 5A1D70Z Performance of Urinary Filtration, Intermittent, Less than 6 Hours Per Day (ICD-10-PCS; 2022-02-19)
PROC: 5A1D70Z Performance of Urinary Filtration, Intermittent, Less than 6 Hours Per Day (ICD-10-PCS; 2022-02-21)
PROC: 5A1D70Z Performance of Urinary Filtration, Intermittent, Less than 6 Hours Per Day (ICD-10-PCS; 2022-02-24)
DX: K92.1 Melena (principal); N18.6 End stage renal disease; A41.9 Sepsis, unspecified organism; J96.01 Acute respiratory failure with hypoxia; J18.9 Pneumonia, unspecified organism; I13.2 Hypertensive heart and chronic kidney disease with heart failure and with stage 5 chronic kidney disease, or end stage renal disease; E46 Unspecified protein-calorie malnutrition; D61.818 Other pancytopenia; I42.9 Cardiomyopathy, unspecified; I50.30 Unspecified diastolic (congestive) heart failure; T82.858A Stenosis of other vascular prosthetic devices, implants and grafts, initial encounter; R00.1 Bradycardia, unspecified; E66.01 Morbid (severe) obesity due to excess calories; E11.22 Type 2 diabetes mellitus with diabetic chronic kidney disease; E11.51 Type 2 diabetes mellitus with diabetic peripheral angiopathy without gangrene; E78.5 Hyperlipidemia, unspecified; D75.89 Other specified diseases of blood and blood-forming organs; E87.5 Hyperkalemia; I08.1 Rheumatic disorders of both mitral and tricuspid valves; I25.10 Atherosclerotic heart disease of native coronary artery without angina pectoris; I27.20 Pulmonary hypertension, unspecified; K43.9 Ventral hernia without obstruction or gangrene; Z96.641 Presence of right artificial hip joint; D53.9 Nutritional anemia, unspecified; R55 Syncope and collapse; Z53.29 Procedure and treatment not carried out because of patient's decision for other reasons; Z20.822 Contact with and (suspected) exposure to COVID-19; Y92.238 Other place in hospital as the place of occurrence of the external cause; Y83.2 Surgical operation with anastomosis, bypass or graft as the cause of abnormal reaction of the patient, or of later complication, without mention of misadventure at the time of the procedure; I95.9 Hypotension, unspecified; Z79.01 Long term (current) use of anticoagulants; Z86.73 Personal history of transient ischemic attack (TIA), and cerebral infarction without residual deficits; Z90.49 Acquired absence of other specified parts of digestive tract; Z99.2 Dependence on renal dialysis; Z95.2 Presence of prosthetic heart valve; Z95.5 Presence of coronary angioplasty implant and graft; Z95.810 Presence of automatic (implantable) cardiac defibrillator; Z95.828 Presence of other vascular implants and grafts; Z68.34 Body mass index [BMI] 34.0-34.9, adult; Z79.899 Other long term (current) drug therapy; Z95.1 Presence of aortocoronary bypass graft; Z87.81 Personal history of (healed) traumatic fracture
CPT/HCPCS: 36415; 36430; 36573; 36600; 71045; 71250; 74174; 74176; 78278; 80048; 80053; 80202; 82375; 82607; 82728; 82746; 82805; 83540; 83550; 83605; 84100; 84145; 84484; 85014; 85018; 85025; 85044; 86038; 86705; 86709; 86803; 86850; 86900; 86920; 87340; 87426; 93005; 93306; 93970; 93971; 94640; 97161; 99285; A9560; C1725; C1893; C9113; J0360; J2185; J2270; J2543; J2765; J3370; J3490; J7030; J7060; P9016; P9034; Q9963; Q9967; P9035; P9036